=== PATIENT | male | born 1935 | race Two or more races ===

== ENCOUNTER 2017-12-29 13:45 | Emergency (ER) | payer OTHER ==
[~2017-12-29] VITALS: Ht 157.5 cm; Wt 56.2 kg
[~2017-12-29 13:45] MED LIST: CRESTOR10 MG PO; KETO10TA2 PO; RELAFEN500 MG PO
== END 2017-12-29 15:48 | disposition home or self-care (01) ==
LOC: ER 13:45
DX: M54.2 Cervicalgia (principal); M62.838 Other muscle spasm

== ENCOUNTER 2022-01-06 07:12 | Emergency (ER) | payer OTHER ==
[~2022-01-06] VITALS: Ht 157.5 cm; Wt 55.3 kg
== END 2022-01-06 10:01 | disposition home or self-care (01) ==
LOC: ER 07:12
DX: S01.321A Laceration with foreign body of right ear, initial encounter (principal); W45.8XXA Other foreign body or object entering through skin, initial encounter; Y93.E8 Activity, other personal hygiene; Y92.019 Unspecified place in single-family (private) house as the place of occurrence of the external cause; Z85.828 Personal history of other malignant neoplasm of skin